=== PATIENT | male | born 1965 | race Caucasian/White ===

== ENCOUNTER → 2021-07-26 | Outpatient (CLI) | payer OTHER ==
--- NOTE | 2021-07-26 17:06 | CARDNUC ---
[place] [address] CARDIAC NUCLEAR IMAGING REPORT Name: CÉSAR DELGADO Room: [facility]#: [id number] Admission: 07/26/21 Attend Phys: Alirio Mancilla Discharge: Date of : 63 Date of Service: 07/26/21 1706 Report #: [id number] THIS REPORT FOR: cc: Joni Conway John E. DO Liston, Michael J. MD [facility] ~ APPROVED REPORT Study performed: 07/26/2021 11:27:05 Exam: Nuclear Stress Test Indication: HIGJ CALCIUM SCORE Patient Location: Out-Patient Stress Tech: DOMINGO GRAVES Stress Nurse: Gricelda Whalen RN NM Tech:ROSALINO MendozaTCOpal Ht: 5 ft 10 in Wt: 249 lbs BSA: 2.29 m2 BMI: 35.72 Medical History Medical History: HTN, Hyperlipidemia Medications: LISINOPRIL Allergies: No known drug allergies Cardiac Risk Factors: Age, HTN, Hyperlipidemia Exercise History: Physically active Stress Test Details Stress Test: Exercise stress testing was performed using a Berny protocol. HR Resting HR: 71 bpm Max Heart Rate (APMHR): 163 bpm Max HR Achieved: 154 bpm Target HR (85% APMHR): 138 bpm % of APMHR: 94 Recovery HR: 99 bpm BP Resting BP: 121/72 mmHg Max BP: 212/76 mmHg ECG Resting ECG: Sinus Rhythm Stress ECG: Sinus Tachycardia ST Change: [place] [address] CARDIAC NUCLEAR IMAGING REPORT Name: RANJANA DELGADOANE [id number] Admission: 07/26/21 Attend Phys: Alirio Mancilla Discharge: Date of : 63 Date of Service: 07/26/21 1706 Report #: [id number] Arrhythmia: None Recovery ECG: Sinus Rhythm Recovery ST Change: None Recovery Arrhythmia: None Clinical Reason for Termination: Dyspnea, Fatigue Exercise duration: 7 min 31 sec Exercise capacity: 9.38 METs Functional Aerobic Impairment 94% The patient tolerated standard Berny protocol exercise without significant cardiac symptoms. Exercise was terminated due to attainment of target heart rate and fatigue. Patient exhibited limited exercise tolerance. Stress ECG Conclusion The baseline twelve-lead EKG shows sinus rhythm without significant ST segment or T wave abnormality. EKGs obtained during and post exercise show sinus rhythm and sinus tachycardia with no significant ST segment or T wave changes when compared to baseline. There were no significant stress-induced arrhythmias. NM EXAM: Myocardial Perfusion REST/STRESS Imaging Protocol: Rest Tc-99m/Stress Tc-99m 1 day Resting Data Rest SPECT myocardial perfusion imaging was performed in supine position 30 minutes following the intravenous injection of 10.1 mCi of Tc-99m Sestamibi. Time of rest injection: 1025 Date: 07/26/2021 The images were gated to evaluate regional wall motion and calculate left ventricular ejection fraction. Administration Route: IV Administration Site: Right AC Exercise Stress At peak stress, the patient was injected intravenously with 33.5mCi of Tc-99m Sestamibi. Time of stress injection: 1140 Date: 07/26/2021 Administration Route: IV Administration Site: Right AC Gated Stress SPECT was performed 30 minutes after stress injection. The images were gated to evaluate regional wall motion and calculate left ventricular ejection fraction. [place] [address] CARDIAC NUCLEAR IMAGING REPORT Name: RANJANA DELGADOANE Room: [facility]#: [id number] Admission: 07/26/21 Attend Phys: Alirio Mancilla Discharge: Date of : 63 Date of Service: 07/26/21 1706 Report #: [id number] Study Quality Study: Good Study Data At rest, the left ventricular ejection fraction was 40%.. Post stress, the left ventricular ejection was 46%.. TID = 0.85. Perfusion Perfusion images obtained in the supine position at rest and post exercise stress show mild photopenia involving the inferior wall and apex that resolves with post-rest prone imaging suggesting attenuation artifact. No other significant fixed or reversible defects were identified. Wall Motion There appears to be mild global hypokinesis without obvious focal wall motion abnormality. Nuclear Conclusion ECG Findings: negative for ischemia Clinical Findings: negative for ischemia Nuclear Findings: negative for ischemia Exercise Capacity: Limited Left Ventricular Function: abnormal Perfusion images show no defect to suggest infarct or ischemia. LV function appears to be mild to moderately decreased with global hypokinesis. Consider nonischemic cardiomyopathy. The study does not appear high risk. <Conclusion> The baseline twelve-lead EKG shows sinus rhythm without significant ST segment or T wave abnormality. EKGs obtained during and post exercise show sinus rhythm and sinus tachycardia with no significant ST segment or T wave changes when compared to baseline. There were no significant stress-induced arrhythmias. <ELECTRONICALLY SIGNED> By: Manjinder Carpenter MD, FACC 07/26/211705 05 05 Manjinder Carpenter MD, FACC /INF
== END ==
LOC: M.NUC 06-26 11:18
PROVIDERS: ATTEND Internal Medicine
DX: R07.89 Other chest pain (principal); I10 Essential (primary) hypertension; E78.00 Pure hypercholesterolemia, unspecified; R93.89 Abnormal findings on diagnostic imaging of other specified body structures